=== PATIENT | female | born 1935 | race Caucasian/White ===

== ENCOUNTER 2019-02-21 07:18 | Day surgery (SDC) | payer MEDICARE, OTHER ==
[~2019-02-21 07:18] MED LIST: Lactated Ringers 1,000 ML IV SCH; Sodium Chloride 0.9% 10 ML Syringe FLUSH PRN
[2019-02-21] MEDS ORDERED: Propofol 200 MG/20 ML SDV IV ONE (07:19)
--- NOTE | 2019-02-21 09:31 | PCM.OPNOTE ---
- General Post-Op/Procedure Note Date of Surgery/Procedure: 02/21/19 Operative Procedure(s): c scope with biopsy Findings: colon polyps ascending x1, transverse x1, descending x2, sigmoid x1, rectal x3 Pre Op Diagnosis: personal hx of colon polyps Post-Op Diagnosis: colon polyps. ascending x1, transverse x1, descending x2, sigmoid x1, rectal x3 Anesthesia Technique: MAC Primary Surgeon: Guero Zabala Anesthesia Provider: Heydi Suh Pathology: colon polyps ascending x1, transverse x1, descending x2, sigmoid x1, rectal x3 Complications: None Condition: Good Free Text/Narrative:: see dictation
--- NOTE | 2019-02-21 12:56 | OR ---
DATE OF OPERATION: 02/21/2019 SURGEON: Guero Zabala MD PROCEDURE PERFORMED: Colonoscopy with cold forceps, hot loop snare biopsy. PREOPERATIVE DIAGNOSES: Colon cancer screening, personal history of colon polyps. POSTOPERATIVE DIAGNOSES: Ascending colon polyp x1, transverse colon polyp x1, descending colon polyp x2, sigmoid colon polyp x1, and rectal polyps x3. INDICATIONS: This is an 83-year-old white female who has a personal history of colon polyps. She is due for a 5-year followup. DESCRIPTION OF OPERATION: After an excellent IV sedation was administered, digital rectal exam was performed. No marked abnormality was noted. Flexible colonoscope was inserted and advanced to the cecum. Prep was good. There were some areas where she had some cloudy material. We were able to irrigate and get an adequate view of the colon. The following findings were noted. Ascending colon, a small polyp, biopsied with cold biopsy forceps and sent for permanent. Transverse colon, small polypoid lesion, biopsied with the hot loop snare and retrieved, sent for permanent. Descending colon, 2 small polypoid lesions, biopsied with cold biopsy forceps and sent for permanent. Sigmoid colon polyp, biopsied with cold biopsy forceps. In the rectum, three hyperplastic appearing polyps were biopsied and submitted in a one container. The patient tolerated the procedure well and was taken to recovery in good condition. Results will be sent to her by letter. /[id number] /MODL
== END 2019-02-21 10:18 | disposition home or self-care (01) ==
LOC: FB.SDS 07:18
PROVIDERS: ATTEND Surgery
DX: Z12.11 Encounter for screening for malignant neoplasm of colon (principal); D12.2 Benign neoplasm of ascending colon; D12.3 Benign neoplasm of transverse colon; K63.5 Polyp of colon; K62.1 Rectal polyp; E03.9 Hypothyroidism, unspecified; I10 Essential (primary) hypertension; M10.9 Gout, unspecified; Z88.3 Allergy status to other anti-infective agents; Z88.0 Allergy status to penicillin; Z90.49 Acquired absence of other specified parts of digestive tract; Z86.010 Personal history of colon polyps; Z79.84 Long term (current) use of oral hypoglycemic drugs; Z79.899 Other long term (current) drug therapy
CPT/HCPCS: 00811; 45380; 45385; 82962; 88305; J2704; J7120